=== PATIENT | male | born 1955 | race Caucasian/White ===

== ENCOUNTER 2016-06-26 13:51 | Emergency (ER) | payer OTHER ==
[~2016-06-26] VITALS: Ht 175.3 cm; Wt 104.3 kg
[~2016-06-26 13:51] MED LIST: ALLEGRA60 MG PO; ALLOPURINOL100 MG PO; BENZONATATE100 MG PO; CRESTOR10 MG PO; FLEXERIL10 MG PO; FLOMAX 0.4MG C0.4 MG PO; IBU-6600 MG PO; JANUMET XR1 TER PO; KEFLEX500 M1 PO; LISINOPRIL/HCTZ1 TA3 PO; LORATADINE10 M1 PO; LORTAB 5/500 501 TAB PO; MEDROL 4MG. DOSE4 MG PO; METFORMIN ER500 MG PO; NAPROXEN SODIU500 MG PO; NORCO 325 MG-51 TAB PO; PANTOPRAZOLE40 MG PO; PROTONIX 40MG T40 MG PO; SIMVASTATIN20 MG PO; SIMVASTATIN40 MG PO; TUMS 400MG TAB400 MG OR; ZANTAC 150150 MG PO; ZITHROMAX Z-PA250 M2 PO
[2016-06-26 14:28] LABS: HEMOGLOBIN 14.2 g/dL (14.1-18.0); LYMPH # 2.2 K/mm3 (0.7-4.5)
[2016-06-26] MEDS ORDERED: SEROQUEL50 MG PO (16:30)
--- NOTE | 2016-06-26 16:30 | Emergency Room Report ---
History of Present Illness Time Seen by [id number] Presenting Problem in Triage Pt arrived:Walked Presenting Problem:PATIENT REPORTS STARTED FEELING BAD THIS AFTERNOON. SEEN AT [facility]. ONE WEEK AGO AND TREATED FOR PNEUMONIA.ALSO REPORTS GI BLOATING AND ABD. PAIN.C/O MID EPIGASTRIC PAIN. 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 N Clinical Suspician of Infection? N Mental Status: 1 - Regular (Normal Baseline) Sepsis Risk:Low Sepsis Risk Have you (or family members/close friends) recently traveled outside the [place]? N If Yes, where/when: Have you had exposure to infectious disease within the past month? N TB? Other? Specify: Source patient, RN notes reviewed, family, RN/MD Exam Limitations no limitations Comment This is a 60-year-old male patient arriving to the emergency room together with his family member complaining with an anxiety attack, that has occurred while driving chest 45 minutes ago. Patient is a history of generalized anxiety disorder for which he is to take medications. Patient denies any hallucinations, delusions, suicidal or homicidal ideation. ALLERGIES Coded Allergies: No Known Allergies (06/07/16) Home Medications Reported Medications SITAGLIPTIN PHOS/METFORMIN HCL (Janumet XR 100-1,000 MG Tablet) 1 TER PO BID Pantoprazole Sodium (Protonix 40MG TAB) 40 MG PO DAILY TAMSULOSIN HCL (Flomax 0.4MG) 0.4 MG PO QHS Allopurinol 100 MG PO DAILY #30 Rosuvastatin Calcium (Crestor) 10 MG PO QHS #30 History Medical History General CAD? No Angina: Yes [place]: No Hypertension? Yes Hyperlipidemia? Yes CHF? No DVT? No PE? No COPD? No Asthma? No Anemia? No GERD? Yes Gastric ulcers? No GI Bleed? No Hernia? No Thyroid Problems? No Hypothyroidism? No CVA? No Seizures? No Diabetes? Yes Insulin Dependent: No Insulin Pump: No Home FSBS? No Renal Insuffiency? No End Stage Renal Disease? No UTI? Yes Stones? No BPH? Yes GB Disease: Yes Nephritic Syndrome? No Asplenia? No Hepatitis? No Sickle Cell Disease? No Arthritis? No Migraines? Yes Cataracts? No Glaucoma? No MRSA? No HIV? No TB? No Anxiety? No Depression? No Cancer? Yes Site: COLON More? No Immunization Hx Ped.Immunizations UTD No DT/Tetanus > 10 Years Ago Flu 2016-FSN Pneumonia Received In Past Surgical Hx Previous Surgery?Y BACK X3 APPY LAP. KENDAL. COLON RESEC Family History Family Hx Diabetes Yes CAD No Hypertension Yes Hyperlipidemia Yes Cancer Yes TB No Social History Smoking Hx Smoker: Never Smoker Tobacco: No Type N/A Alcohol Alcohol: No Review of Systems All Other Systems Reviewed and Negative Psychiatric/Neurological anxiety Physical Exam Vital Signs Vital Signs Date Time Temp Pulse Resp B/P Pulse O2 O2 Flow FiO2 Ox Delivery Rate 06/26 1700 98.3 111 18 141/108 97 06/26 1658 98.3 111 18 141/108 97 06/26 1620 98.3 111 18 141/108 97 06/26 1535 98.6 100 18 132/93 95 06/26 1401 98.4 114 18 143/77 95 General Appearance normal appearance, WD/WN, no apparent distress Neck normal inspection, non-tender, supple, full range of motion Respiratory Status Yes: trachea midline, chest symmetrical, non tender chest. No: respiratory distress. Lung Sounds bilateral: normal breath sounds, lungs clear. Cardiovascular normal exam, regular rate/rhythm, no peripheral edema, no gallop, no JVD, no murmur, no rub, normal peripheral pulses Gastrointestinal normal bowel sounds, normal exam, non tender, soft, no organomegaly Extremities non-tender, normal range of motion, normal inspection Neurologic alert, mold shifter II-XII nml as tested, normal exam, oriented x 3 Mental status normal mood/affect Skin intact, normal color, warm/dry Medical Decision Making LABS/Meds/Orders Pt receiving controlled substance in ED? No Comment On reevaluation patient appears medically stable, clinically improving. Advised patient to take his medications as directed and follow-up with EP in 2-3 days per discharge instructions. Results/Orders Laboratory Tests 06/26/16 1415: Lactic Acid 1.3 06/26/16 1415: Sodium 139, Potassium 3.6, Chloride 104, Carbon Dioxide 23, BUN 10, Creatinine 0.8, Estimated Creat Clear 149, Estimated GFR (MDRD) 99, Glucose 115 H, Calcium 8.4 L, WBC 10.7, RBC 4.96, Hgb 14.2, Hct 43.6, MCV 87.8, RDW 15.3, Plt Count 346, MPV 8.3, Gran % 73.9, Gran # 7.9, Lymphocytes % 20.0, Monocytes % 5.2, Eosinophils % 0.4, Basophils % 0.4, Lymphocytes # 2.2, Monocytes # 0.6, Eosinophils # 0.1, Basophils # 0.1, PUBS MCHC 32.7, MCH 28.7 Orders Procedure Date/time Status IV SALINE LOCK 06/26 1421 Active CULTURE, BLOOD 06/26 1421 Active LACTIC ACID 06/26 1421 Complete CBC WITH AUTO DIFF 06/26 1421 Complete BASIC METABOLIC PROFILE 06/26 1421 Complete Departure Departure Time of Disposition 1627 Disposition DC Home or Self Care(routine) Clinical Impression Primary Impression: Anxiety Secondary Impressions: Insomnia Qualifiers: Insomnia type: unspecified Qualified Code: G47.00 - Insomnia, unspecified Condition STABLE Referrals Edilberto Choi MD (Family): [facility] Patient Instructions DI for Anxiety -- Adult, DI for Insomnia Additional Instructions Please follow-up with Dr. Choi in the office in the few days if no better. Take the medications prescribed tonight as directed. Avoid taking daytime naps. Discharge Counseling Counseled pt/family regarding diagnosis, test results, medications/RX, home care, follow up needs Comment Please follow-up with Dr. Choi in the office in the few days if no better. Take the medications prescribed tonight as directed. Avoid taking daytime naps. Prescriptions Current Visit Scripts Quetiapine Fumarate (Seroquel 50MG) 50 MG PO QHSP PRN insomnia anxiety #30 TAB ED Critical Care Critical Care No at 1125
[2016-06-26 17:00] VITALS: BP 141/108
[2016-07-19] MEDS ORDERED: LISINOPRIL5 MG PO (16:44)
[2016-07-19] MEDS ORDERED: ALLOPURINOL100 MG PO (16:44)
[2016-07-19] MEDS ORDERED: CARVEDILOL3.125 MG PO (16:44)
[2016-07-19] MEDS ORDERED: TORSEMIDE 20MG20 MG PO (16:45)
[2016-07-19] MEDS ORDERED: POTASSIUM CHLO10 ME3 PO (16:45)
[2016-07-19] MEDS ORDERED: METFORMIN HCL1000 MG PO (16:46)
[2016-07-19] MEDS ORDERED: MELOXICAM7.5 MG PO (16:46)
== END 2016-06-26 17:01 | disposition home or self-care (01) ==
LOC: ER 13:51
PROVIDERS: Emergency Medicine
DX: F41.9 Anxiety disorder, unspecified (principal); G47.00 Insomnia, unspecified; E11.9 Type 2 diabetes mellitus without complications; I10 Essential (primary) hypertension; K21.9 Gastro-esophageal reflux disease without esophagitis

== ENCOUNTER 2016-08-07 02:12 | Emergency (ER) | payer OTHER ==
[~2016-08-07] VITALS: Ht 175.3 cm; Wt 106.6 kg
[~2016-08-07 02:12] MED LIST changes: +CARVEDILOL3.125 MG PO; +LISINOPRIL5 MG PO; +MELOXICAM7.5 MG PO; +METFORMIN HCL1000 MG PO; +POTASSIUM CHLO10 ME3 PO; +SEROQUEL50 MG PO; +TORSEMIDE 20MG20 MG PO
--- NOTE | 2016-08-07 02:51 | Emergency Room Report ---
History of Present Illness Time Seen by [id number] Presenting Problem in Triage Pt arrived:Walked Presenting Problem:PT C/O A TIGHTENING IN THE CENTER OF HIS CHEST THAT SENT A TINGLING SENSATION DOWN HIS RIGHT ARM AT AROUND 0145. 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 N Clinical Suspician of Infection? N Mental Status: 1 - Regular (Normal Baseline) Sepsis Risk:Low Sepsis Risk Have you (or family members/close friends) recently traveled outside the [place]? N If Yes, where/when: Have you had exposure to infectious disease within the past month? N TB? Other? Specify: Source patient, RN notes reviewed, family, RN/MD Exam Limitations no limitations Comment This is a 60-year-old gentleman presenting to the emergency room for evaluation of an episode of chest pain, described as burning like sensation across his mid chest, radiating to his LEFT shoulder, the started while he was trying to fall asleep, just prior to arrival (around 1am). Patient is currently wearing a life vest prescribed to him just one week ago by his own certified nurse operating room, Dr. Higuera at [facility] in [place]. Patient advised that in May 2016 he developed pneumonia and was subsequently diagnosis, based on echocardiogram with an ejection fraction of 15 percent which later on went up to 20 percent. QRS discussed the high risk for the ventricular fibrillation's/V. tach he was placed in life LifeVest and scheduled to have a cardiac catheterization for August 09, this Sunday, at [facility] with Dr. Higuera. Comorbidities factors: Diabetes mellitus, hypertension, age Cardiac Chest Pain Chest pain indicative of cardiac Yes Timing/Duration 1 hour Severity/Quality mild (3/10) Location central Chest Pain Radiation shoulder(s) (left) Activities at Onset resting Modifying Factors worse with exercise, improves with lying down, improves with rest Timing/Duration just prior to arrival Severity mild (7/10 at time of onset) Associated Symptoms diaphoresis, shortness of breath ALLERGIES Coded Allergies: No Known Allergies (07/19/16) Home Medications Active Scripts Quetiapine Fumarate (Seroquel 50MG) 50 MG PO QHSP PRN insomnia anxiety #30 TAB Prov: 06/26/16 Reported Medications SITAGLIPTIN PHOS/METFORMIN HCL (Janumet XR 100-1,000 MG Tablet) 1 TER PO BID Pantoprazole Sodium (Protonix 40MG TAB) 40 MG PO DAILY TAMSULOSIN HCL (Flomax 0.4MG) 0.4 MG PO QHS Allopurinol 100 MG PO DAILY #30 Rosuvastatin Calcium (Crestor) 10 MG PO QHS #30 Allopurinol 100 MG PO DAILY Carvedilol (Carvedilol 3.125MG) 3.125 MG PO BID Lisinopril 5 MG PO DAILY POTASSIUM CHL (Potassium Chloride) 10 MEQ PO DAILY TORSEMIDE (Torsemide 20MG) 20 MG PO DAILY METFORMIN HCL (Metformin 1000MG) 1,000 MG PO BID Meloxicam (Meloxicam 7.5MG) 7.5 MG PO DAILY History Medical History General CAD? No Angina: Yes [place]: No Hypertension? Yes Hyperlipidemia? Yes CHF? Yes DVT? No PE? No COPD? No Asthma? No Anemia? No GERD? Yes Gastric ulcers? No GI Bleed? No Hernia? No Thyroid Problems? No Hypothyroidism? No CVA? No Seizures? No Diabetes? Yes Insulin Dependent: No Insulin Pump: No Home FSBS? No Renal Insuffiency? No End Stage Renal Disease? No UTI? Yes Stones? No BPH? Yes GB Disease: Yes Nephritic Syndrome? No Asplenia? No Hepatitis? No Sickle Cell Disease? No Arthritis? No Migraines? Yes Cataracts? No Glaucoma? No MRSA? No HIV? No TB? No Anxiety? No Depression? No Cancer? Yes Site: COLON More? Yes Additional hx: 15% EF 06/2016 LIFE VEST Immunization Hx DT/Tetanus > 10 Years Ago Flu 2015-FSN Pneumonia Received In Past Surgical Hx Previous Surgery?Y BACK X3 APPY LAP. KENDAL. COLON RESEC Family History Family Hx Diabetes Yes CAD No Hypertension Yes Hyperlipidemia Yes Cancer Yes TB No Social History Smoking Hx Smoker: Never Smoker Tobacco: No Alcohol Alcohol: No Review of Systems All Other Systems Reviewed and Negative Respiratory shortness of breath Cardiovascular chest pain Physical Exam Vital Signs Vital Signs Date Time Temp Pulse Resp B/P Pulse O2 O2 Flow FiO2 Ox Delivery Rate 08/07 0632 98.8 78 20 115/77 96 08/07 0546 78 20 115/77 96 2 08/07 0444 78 20 109/61 96 2 08/07 0400 68 20 127/75 98 2 08/07 0302 79 18 107/64 97 2 08/07 0300 96 08/07 0216 98.8 72 18 129/89 98 General Appearance normal appearance, WD/WN, no apparent distress Neck normal inspection, non-tender, supple, full range of motion Respiratory Status Yes: trachea midline, chest symmetrical, non tender chest. No: respiratory distress. Lung Sounds bilateral: normal breath sounds, lungs clear. 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 No Comment 03:45am-call initiatted with [facility] regarding patient's transfer back to his own certified nurse operating room. 03:50am-case d/w Dr Chen, covering for the patient's own certified nurse operating room, Dr. Bauer. Dr. Chen advised of patient's condition, physical exam, workup, scheduled upcoming cardiac catheterization for this Sunday, as well as electrocardiogram and blood work results. Dr. Chen accepted the patient as consultation only and recommended patient to be transferred to the [facility] hospitalist team. 03:53am-[facility] hospitalist page, Dr. Carl. 04:20am-case d/w Siddhartha, hospitalist at [facility], advised her of the same. Dr. Carl accept the patient to be transferred to [facility] but only after 7 AM, as there are no available open beds at their facility. She requested a second cardiac enzyme to be run in the meanwhile, as well as a repeat electrocardiogram. Patient remains stable, in no acute distress, chest pain-free at this time. Second cardiac enzyme returns negative, patient still no acute distress. Results/Orders Laboratory Tests 08/07/16 0440: Creatine Kinase 180, CK-MB (CK-2) Rel Index 1.3, CK and CKMB Interp 2.3, Troponin I < 0.02 08/07/16 0230: Sodium 139, Potassium 3.9, Chloride 102, Carbon Dioxide 28, BUN 16, Creatinine 0.8, Estimated Creat Clear 152, Estimated GFR (MDRD) 99, Glucose 143 H, Calcium 8.8, Total Bilirubin 0.5, AST 21, ALT 39, Alkaline Phosphatase 107, Creatine Kinase 189, CK-MB (CK-2) Rel Index 1.3, CK and CKMB Interp 2.5, Troponin I < 0.02, Total Protein 7.7, Albumin 3.7, Globulin 4.0 H, Albumin/Globulin Ratio 0.9 L, WBC 6.2, RBC 5.32, Hgb 15.2, Hct 46.5, MCV 87.5, RDW 14.6, Plt Count 218 , MPV 6.0 L, Gran % 48.0, Gran # 3.0, Lymphocytes % 43.8, Monocytes % 5.5, Eosinophils % 2.2, Basophils % 0.5, Lymphocytes # 2.7, Monocytes # 0.3, Eosinophils # 0.1, Basophils # 0.0, PUBS MCHC 32.7, MCH 28.6 Current Medication Orders Sig/Angelica Start time Last Medication Dose Route Stop Time Status Admin Sodium Chloride 10 ML PRN PRN 08/07 229 DCD IV 08/08 221 Orders Procedure Date/time Status ELECTROCARDIOGRAM REQUEST 08/07 418 Active CARDIAC ENZYMES 08/07 418 Complete ELECTROCARDIOGRAM REQUEST 08/07 222 Active IV SALINE LOCK 08/07 222 Active OXYGEN PER NURSE 08/07 222 Active SAP BW ARCHITECT 08/07 222 Active CBC WITH AUTO DIFF 08/07 222 Complete CARDIAC ENZYMES 08/07 222 Complete CHEM 12 PROFILE 08/07 222 Complete INV-HPOFI-VMIOPL BY SAME 08/07 MAREK Active 12 LEAD EKG-PRIMO (INITIAL) 08/07 UNK Active CM/EKG CM/EKG 1 Monitor Rhythm Normal Sinus Rhythm Rate 85 Ectopy No Comments No acute ischemic changes EKG rate, NSR, rhythm, no evid. of ischemic chgs, no ectopy, normal QRS, no EKG for comparison, non-spec. ST/Twave chgs, ST elevation, ST depression, LBBB, RBBB, ectopy, abnormal Q waves CM/EKG 2 Monitor Rhythm Normal Sinus Rhythm Rate 80 Ectopy No Comments No acute ischemic changes EKG rate, NSR, rhythm, no evid. of ischemic chgs, no ectopy, normal QRS, no EKG for comparison XRAY/CT/US XRAY/CT/US XRAY chest XR interpretation by reviewed by me Xray Results no infiltrates, normal heart size, normal lung inflation viral Departure Departure Time of Disposition 0358 Disposition DC/XFER from ER to [facility] Clinical Impression Primary Impression: Chest pain Qualifiers: Chest pain type: unspecified Qualified Code: R07.9 - Chest pain, unspecified Condition STABLE ED Critical Care Critical Care No at 1806
--- NOTE | 2016-08-07 02:51 | Emergency Room Report ---
History of Present Illness Time Seen by [id number] Presenting Problem in Triage Pt arrived:Walked Presenting Problem:PT C/O A TIGHTENING IN THE CENTER OF HIS CHEST THAT SENT A TINGLING SENSATION DOWN HIS RIGHT ARM AT AROUND 0145. 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 N Clinical Suspician of Infection? N Mental Status: 1 - Regular (Normal Baseline) Sepsis Risk:Low Sepsis Risk Have you (or family members/close friends) recently traveled outside the [place]? N If Yes, where/when: Have you had exposure to infectious disease within the past month? N TB? Other? Specify: Source patient, RN notes reviewed, family, RN/MD Exam Limitations no limitations Comment This is a 60-year-old gentleman presenting to the emergency room for evaluation of an episode of chest pain, described as burning like sensation across his mid chest, radiating to his LEFT shoulder, the started while he was trying to fall asleep, just prior to arrival (around 1am). Patient is currently wearing a life vest prescribed to him just one week ago by his own front end loader operator, Dr. Higuera at [facility] in [place]. Patient advised that in May 2016 he developed pneumonia and was subsequently diagnosis, based on echocardiogram with an ejection fraction of 15 percent which later on went up to 20 percent. QRS discussed the high risk for the ventricular fibrillation's/V. tach he was placed in life LifeVest and scheduled to have a cardiac catheterization for August 09, this Sunday, at [facility] with Dr. Higuera. Comorbidities factors: Diabetes mellitus, hypertension, age Cardiac Chest Pain Chest pain indicative of cardiac Yes Timing/Duration 1 hour Severity/Quality mild (3/10) Location central Chest Pain Radiation shoulder(s) (left) Activities at Onset resting Modifying Factors worse with exercise, improves with lying down, improves with rest Timing/Duration just prior to arrival Severity mild (7/10 at time of onset) Associated Symptoms diaphoresis, shortness of breath ALLERGIES Coded Allergies: No Known Allergies (07/19/16) Home Medications Active Scripts Quetiapine Fumarate (Seroquel 50MG) 50 MG PO QHSP PRN insomnia anxiety #30 TAB Prov: 06/26/16 Reported Medications SITAGLIPTIN PHOS/METFORMIN HCL (Janumet XR 100-1,000 MG Tablet) 1 TER PO BID Pantoprazole Sodium (Protonix 40MG TAB) 40 MG PO DAILY TAMSULOSIN HCL (Flomax 0.4MG) 0.4 MG PO QHS Allopurinol 100 MG PO DAILY #30 Rosuvastatin Calcium (Crestor) 10 MG PO QHS #30 Allopurinol 100 MG PO DAILY Carvedilol (Carvedilol 3.125MG) 3.125 MG PO BID Lisinopril 5 MG PO DAILY POTASSIUM CHL (Potassium Chloride) 10 MEQ PO DAILY TORSEMIDE (Torsemide 20MG) 20 MG PO DAILY METFORMIN HCL (Metformin 1000MG) 1,000 MG PO BID Meloxicam (Meloxicam 7.5MG) 7.5 MG PO DAILY History Medical History General CAD? No Angina: Yes [place]: No Hypertension? Yes Hyperlipidemia? Yes CHF? Yes DVT? No PE? No COPD? No Asthma? No Anemia? No GERD? Yes Gastric ulcers? No GI Bleed? No Hernia? No Thyroid Problems? No Hypothyroidism? No CVA? No Seizures? No Diabetes? Yes Insulin Dependent: No Insulin Pump: No Home FSBS? No Renal Insuffiency? No End Stage Renal Disease? No UTI? Yes Stones? No BPH? Yes GB Disease: Yes Nephritic Syndrome? No Asplenia? No Hepatitis? No Sickle Cell Disease? No Arthritis? No Migraines? Yes Cataracts? No Glaucoma? No MRSA? No HIV? No TB? No Anxiety? No Depression? No Cancer? Yes Site: COLON More? Yes Additional hx: 15% EF 06/2016 LIFE VEST Immunization Hx DT/Tetanus > 10 Years Ago Flu 2015-FSN Pneumonia Received In Past Surgical Hx Previous Surgery?Y BACK X3 APPY LAP. KENDAL. COLON RESEC Family History Family Hx Diabetes Yes CAD No Hypertension Yes Hyperlipidemia Yes Cancer Yes TB No Social History Smoking Hx Smoker: Never Smoker Tobacco: No Alcohol Alcohol: No Review of Systems All Other Systems Reviewed and Negative Respiratory shortness of breath Cardiovascular chest pain Physical Exam Vital Signs Vital Signs Date Time Temp Pulse Resp B/P Pulse O2 O2 Flow FiO2 Ox Delivery Rate 08/07 0632 98.8 78 20 115/77 96 08/07 0546 78 20 115/77 96 2 08/07 0444 78 20 109/61 96 2 08/07 0400 68 20 127/75 98 2 08/07 0302 79 18 107/64 97 2 08/07 0300 96 08/07 0216 98.8 72 18 129/89 98 General Appearance normal appearance, WD/WN, no apparent distress Neck normal inspection, non-tender, supple, full range of motion Respiratory Status Yes: trachea midline, chest symmetrical, non tender chest. No: respiratory distress. Lung Sounds bilateral: normal breath sounds, lungs clear. 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 03:50am-case d/w Dr Chen, covering for the patient's own front end loader operator, Dr. Bauer. Dr. Chen advised of patient's condition, physical exam, workup, scheduled upcoming cardiac catheterization for this Sunday, as well as electrocardiogram and blood work results. Dr. Chen accepted the patient as consultation only and recommended patient to be transferred to the [facility] hospitalist team. 03:53am-[facility] hospitalist page, Dr. Carl. 04:20am-case d/w Siddhartha, hospitalist at [facility], advised her of the same. Dr. Calr accept the patient to be transferred to [facility] but only after 7 AM, as there are no available open beds at their facility. She requested a second cardiac enzyme to be run in the meanwhile, as well as a repeat electrocardiogram. Patient remains stable, in no acute distress, chest pain-free at this time. Second cardiac enzyme returns negative, patient still no acute distress. Results/Orders Laboratory Tests 08/07/16 0440: Creatine Kinase 180, CK-MB (CK-2) Rel Index 1.3, CK and CKMB Interp 2.3, Troponin I < 0.02 08/07/16 0230: Sodium 139, Potassium 3.9, Chloride 102, Carbon Dioxide 28, BUN 16, Creatinine 0.8, Estimated Creat Clear 152, Estimated GFR (MDRD) 99, Glucose 143 H, Calcium 8.8, Total Bilirubin 0.5, AST 21, ALT 39, Alkaline Phosphatase 107, Creatine Kinase 189, CK-MB (CK-2) Rel Index 1.3, CK and CKMB Interp 2.5, Troponin I < 0.02, Total Protein 7.7, Albumin 3.7, Globulin 4.0 H, Albumin/Globulin Ratio 0.9 L, WBC 6.2, RBC 5.32, Hgb 15.2, Hct 46.5, MCV 87.5, RDW 14.6, Plt Count 218 , MPV 6.0 L, Gran % 48.0, Gran # 3.0, Lymphocytes % 43.8, Monocytes % 5.5, Eosinophils % 2.2, Basophils % 0.5, Lymphocytes # 2.7, Monocytes # 0.3, Eosinophils # 0.1, Basophils # 0.0, PUBS MCHC 32.7, MCH 28.6 Current Medication Orders Sig/Angelica Start time Last Medication Dose Route Stop Time Status Admin Sodium Chloride 10 ML PRN PRN 08/07 229 DCD IV 08/08 221 Orders Procedure Date/time Status ELECTROCARDIOGRAM REQUEST 08/07 418 Active CARDIAC ENZYMES 08/07 418 Complete ELECTROCARDIOGRAM REQUEST 08/07 222 Active IV SALINE LOCK 08/07 222 Active OXYGEN PER NURSE 08/07 222 Active STAFF PHYSICAL THERAPY ASSISTANT 08/07 222 Active CBC WITH AUTO DIFF 08/07 222 Complete CARDIAC ENZYMES 08/07 222 Complete CHEM 12 PROFILE 08/07 222 Complete [id number] BY SAME 08/07 MAREK Active 12 LEAD EKG-PRIMO (INITIAL) 08/07 UNK Active CM/EKG CM/EKG 1 Monitor Rhythm Normal Sinus Rhythm Rate 85 Ectopy No Comments No acute ischemic changes EKG rate, NSR, rhythm, no evid. of ischemic chgs, no ectopy, normal QRS, no EKG for comparison, non-spec. ST/Twave chgs, ST elevation, ST depression, LBBB, RBBB, ectopy, abnormal Q waves CM/EKG 2 Monitor Rhythm Normal Sinus Rhythm Rate 80 Ectopy No Comments No acute ischemic changes EKG rate, NSR, rhythm, no evid. of ischemic chgs, no ectopy, normal QRS, no EKG for comparison XRAY/CT/US XRAY/CT/US XRAY chest XR interpretation by reviewed by me Xray Results no infiltrates, normal heart size, normal lung inflation viral Departure Departure Time of Disposition 0358 Disposition DC/XFER from ER to [facility] Clinical Impression Primary Impression: Chest pain Qualifiers: Chest pain type: unspecified Qualified Code: R07.9 - Chest pain, unspecified Condition STABLE ED Critical Care Critical Care No at 1806
[2016-08-07 02:59] LABS: HEMOGLOBIN 15.2 g/dL (14.1-18.0); LYMPH # 2.7 K/mm3 (0.7-4.5); LYMPH % 43.8 % (10-50)
[2016-08-07 03:39] LABS: BUN 16 mg/dL (7-18)
[2016-08-07 03:40] LABS: GFR (ESTIMATED) 99 ML/MIN (>60)
--- NOTE | 2016-08-07 04:20 | RADIOLOGY REPORT PS360 ---
CHEST-PORTABLE HISTORY: Chest pain CP ORDERING PHYSICIAN: Savage Chavira MD PATIENT AGE: 60 years COMPARISON: 07/19/2016 FINDINGS: Underpenetrated exam. Unremarkable cardiovascular structures. There is an overlying metallic device overlying the heart and mediastinum obscuring detailing his regions. Lungs are clear. IMPRESSION: Overlying metallic device in the mid chest otherwise negative
[2016-08-07 06:32] VITALS: BP 115/77
== END 2016-08-07 06:33 | disposition short-term general hospital (02) ==
LOC: ER 02:12
PROVIDERS: Emergency Medicine
DX: R07.9 Chest pain, unspecified (principal); E11.9 Type 2 diabetes mellitus without complications; I10 Essential (primary) hypertension; E78.5 Hyperlipidemia, unspecified

== ENCOUNTER → 2016-11-06 | Outpatient (CLI) | payer OTHER ==
--- NOTE | 2016-11-06 16:05 | RADIOLOGY REPORT PS360 ---
PROCEDURE: 2-D M-mode and color Doppler study INDICATIONS FOR THE TEST: Chest pain COPD Heart Murmur Tobacco Smoking Palpitations Fatigue Syncope Edema Hypertension+Diabetes Mellitus+ Rheumatic Fever SOB+GRIJALVA Obesity+Hyperlipidemia+ Family History HD Additional History LIFEVEST X 90 DAYS, EF ON OLD ECHO <20% PATIENT INFORMATION HEIGHT: 69 WEIGHT:243 GENDER: Male B/P:102/70 2-D/M-MODE INTERPRETATION: 2-D MEASUREMENTS OBSERVED VALUES IN CMS Right Ventricular Dimension (RVDd) 2.9 Interventricular Septum (Thickness)(IVsd) 1.6 Left Ventricular Internal Dimensions(LVIDd) 5.3 Left Ventricular Posterior Wall (Thickness)(LVPWd) 1.0 Aortic Root 3.0 Aortic Cusp Separation 2.0 Left Atrial Dimensions (LAD) 4.7 2D 1. Left atrium is mildly enlarged, left ventricle is mildly dilated, there is severely reduced left ventricular systolic function visually estimated ejection fraction of 20-25%, there is marked hypokinesis involving the distal septum, anteroapical and anterior wall. 2. The right atrium is normal size, right ventricle is mildly enlarged with normal contractility. 3. The aortic valve is minimally thickened and fibrosed, there is no aortic stenosis. 4. The mitral valve leaflets are minimally thickened. 5. The tricuspid valve is structurally normal. 6. The pulmonic valve is not well visualized. 7. No significant pericardial effusion noted. DOPPLER INTERROGATION: Doppler interrogation of the aortic mitral and tricuspid presence of mild mitral and tricuspid regurgitation, tricuspid and enteric velocity insufficient for calculation of the right ventricular systolic pressure, grade 1 diastolic dysfunction seen. CONCLUSION: 1. Mildly enlarged left atrium, mildly dilated left ventricle, severely reduced left ventricular systolic function, visually estimated ejection fraction of 20-25% with segmental wall motion abnormality described above. 2. Mild mitral and tricuspid regurgitation. 3. No significant pericardial effusion noted.
== END ==
LOC: RT 14:37
DX: I50.9 Heart failure, unspecified (principal); R07.89 Other chest pain

== ENCOUNTER → 2017-01-30 | Outpatient (CLI) | payer OTHER ==
[2017-01-30 08:16] LABS: HEMOGLOBIN 14.3 g/dL (14.1-18.0); LYMPH # 2.7 K/mm3 (0.7-4.5); LYMPH % 31.6 % (10-50)
[2017-01-30 10:41] LABS: BUN 15 mg/dL (7-18); GFR (ESTIMATED) 86 ML/MIN (>60); PROSTATE-SPECIFIC AG SCREEEN 0.6 ng/mL (0.0-4.0)
[2017-01-31 10:39] LABS: Creatinine, Urine 65.3 mg/dL (Not Estab.); Microalbumin, Urine <3.0 ug/mL (Not Estab.)
== END ==
LOC: LAB 08:00
PROVIDERS: Nurse Practitioner Family
DX: N40.0 Benign prostatic hyperplasia without lower urinary tract symptoms (principal); E11.9 Type 2 diabetes mellitus without complications; I10 Essential (primary) hypertension; I42.8 Other cardiomyopathies; M1A.09X0 Idiopathic chronic gout, multiple sites, without tophus (tophi)
CPT/HCPCS: G0103

== ENCOUNTER → 2017-05-24 | Outpatient (CLI) | payer OTHER ==
[2017-05-24 09:36] LABS: BUN 13 mg/dL (7-18); GFR (ESTIMATED) 86 ML/MIN (>60)
== END ==
LOC: LAB 07:43
PROVIDERS: Nurse Practitioner Family
DX: E11.69 Type 2 diabetes mellitus with other specified complication (principal); E78.2 Mixed hyperlipidemia

== ENCOUNTER → 2017-06-05 | Outpatient (CLI) | payer OTHER ==
[2017-06-05 07:54] LABS: HEMOGLOBIN 13.4 g/dL (14.1-18.0); LYMPH # 2.3 K/mm3 (0.7-4.5); LYMPH % 23.6 % (10-50)
[2017-06-05 10:20] LABS: BUN 15 mg/dL (7-18)
[2017-06-05 10:21] LABS: GFR (ESTIMATED) 69 ML/MIN (>60)
== END ==
LOC: LAB 07:40
PROVIDERS: Otolaryngology
DX: H70.11 Chronic mastoiditis, right ear (principal); H65.91 Unspecified nonsuppurative otitis media, right ear; Z01.812 Encounter for preprocedural laboratory examination

== ENCOUNTER 2017-06-07 08:59 | Day surgery (SDC) | payer OTHER ==
[~2017-06-07] VITALS: Ht 175.3 cm; Wt 113.4 kg
--- NOTE | 2017-06-07 10:43 | Anesthesia Record ---
Anesthesia Record Part I Total IV fluids: 500 EBL (ml): 0 Urine Output: 0 B/P: 111/82 % SaO2: 91 Pulse: 89 Resps: 12 Temp: 97.2 Patient is: Drowsy, Stable Stable to PACU at: 1040 at 1043
--- NOTE | 2017-06-07 10:44 | Anesthesia Record ---
Anesthesia Record Part II Discharge time: 1110 Destination: Same day surgery PACU nurse assessment review? Yes Patient is: Awake, Stable Anesthesia complications? No at 1043
--- NOTE | 2017-06-07 13:16 | Operative Note ---
Other ENT Procedure Date of Procedure: 06/07/17 Time of Procedure: 1000 Procedure performed: 1. Microdebridement right mastoid 2. RIGHT MYRINGOTOMY TUBE PLACEMENT Pre-op diagnosis: 1. Chrnic right mastoiditis 2. Right serous otitis media 3. Diabetes mellitus Post-op diagnosis: same Surgeon: Williams Mckeon Anesthesia: general Pre-procedure antibiotics: Ancef 1 gm Pre-procedure steroid: Decadron 12 mg Description of procedure: With patient under general anesthesia the right ear was prepped and draped. A severe impaction in the RIGHT ear which extended into an appendectomy tympanic RIGHT mastoid pocket. Using microdebridement techniques and the operating microscope the right ear was fully micro-debrided. When that was done examination of the tympanic membrane showed serous fluid in the RIGHT middle ear. An incision was made in the posterior-inferior quadrant serous fluid was aspirated and an Prado beveled tube was inserted. Ciprodex drops were applied. Patient tolerated procedure well and was sent to recovery in good general condition. EBL (ml): 0 at 0211
[2017-06-07 16:35] VITALS: BP 106/78
== END 2017-06-07 11:59 | disposition home or self-care (01) ==
LOC: SDC 08:59
PROVIDERS: Otolaryngology
PROC: 0JD13ZZ Extraction of Face Subcutaneous Tissue and Fascia, Percutaneous Approach (ICD-10-PCS; 2017-06-07)
PROC: 099580Z Drainage of Right Middle Ear with Drainage Device, Via Natural or Artificial Opening Endoscopic (ICD-10-PCS; principal; 2017-06-07 13:00)
DX: H70.11 Chronic mastoiditis, right ear (principal); H65.91 Unspecified nonsuppurative otitis media, right ear